=== PATIENT | female | born 2000 | race Caucasian/White ===

== ENCOUNTER 2023-06-22 15:52 | Emergency (ER) | payer MEDICAID ==
[~2023-06-22] VITALS: Ht 157 cm; Wt 54.0 kg
[2023-06-22 16:00] VITALS: BP 122/83
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
[2023-06-22] MEDS ORDERED: CEPH500T PO (16:47)
== END 2023-06-22 16:56 | disposition home or self-care (01) ==
LOC: ER 15:58
DX: S31.41XA Laceration without foreign body of vagina and vulva, initial encounter (principal); X58.XXXA Exposure to other specified factors, initial encounter
CPT/HCPCS: 12011